=== PATIENT | female | born 1960 | race Caucasian/White ===

== ENCOUNTER → 2016-10-01 | Outpatient (CLI) | payer BC, OTHER ==
--- NOTE | 2016-10-01 08:34 | DI ---
XR FOOT COMPLETE MIN 3VW,10/01/2016 7:43 AM: Clinical History: Right foot pain. Previous Exam: None at this facility. Findings: 3 views of the right foot are obtained, and demonstrate a very small avulsion of the right fifth prox imal metatarsal. There is a hallux valgus deformity noted of the right first metatarsophalangeal joint with overlying soft tissue swelling. Impression: Small avulsion fracture of the proximal right fifth metatarsal. Hallux valgus deformity of the right first metatarsophalangeal joint.
== END ==
LOC: MOB RAD 07:44
DX: M79.671 Pain in right foot (principal); S92.354A Nondisplaced fracture of fifth metatarsal bone, right foot, initial encounter for closed fracture; W22.8XXA Striking against or struck by other objects, initial encounter
CPT/HCPCS: 73630

== ENCOUNTER 2018-08-02 05:10 | Inpatient (IN) ==
[2018-08-02] MEDS ORDERED: ONDANSETRON 4 MG/2 ML VIAL IVP ONE (05:36)
[2018-08-02] MEDS ORDERED: Sodium Chloride 0.9% 1,000 ML PRIMARY IV ONE ×2 (05:36→06:48)
[2018-08-02 06:05] LABS: BASOPHILS # (AUTO) 0.02 10*3/UL; BASOPHILS % (AUTO) 0.1 % (0-1); EOSINOPHILS % (AUTO) 0.6 % (0-8); Hematocrit [HCT] 45.7 % (37.0-47.0); Hemoglobin [HGB] 15.6 g/dL (12.0-16.0); LYMPHOCYTES # (AUTO) 0.88 10*3/uL; MEAN CORPUSCULAR HEMOGLOBIN 29.6 PG (27-31); MEAN CORPUSCULAR HGB CONC 34.1 g/dL (33-37); MEAN CORPUSCULAR VOLUME 86.7 FL (81-99); MEAN PLATELET VOLUME 10.3 FL (7.4-12.2); MONOCYTES # (AUTO) 1.51 10*3/UL (0.3-0.8); MONOCYTES % (AUTO) 8.9 % (5-15); NEUTROPHILS # (AUTO) 14.36 10*3/UL; NEUTROPHILS % (AUTO) 84.8 % (50-80); RED BLOOD COUNT 5.27 10^6/uL (4.20-5.40)
[2018-08-02 06:14] LABS: BLOOD UREA NITROGEN 10 mg/dL (7-22); LIPASE 44 IU/L (23-300); SERUM ALBUMIN 4.2 g/dL (3.5-4.8)
[2018-08-02 06:32] LABS: PLATELET MORPHOLOGY COMMENT NORMAL MORPHOLOGY (NORM); RBC MORPHOLOGY COMMENT NORMAL MORPHOLOGY (NORM); WBC MORPHOLOGY COMMENT NORMAL MORPHOLOGY (NORM)
--- NOTE | 2018-08-02 07:50 | DI ---
EXAM: CT Abdomen and Pelvis With Intravenous Contrast. CLINICAL HISTORY: Abdominal pain. TECHNIQUE: Axial computed tomography images of the abdomen and pelvis with intravenous contrast. COMPARISON: No relevant prior studies available. FINDINGS: Lower thorax: No acute findings. ABDOMEN: Liver: Unremarkable. No mass. Gallbladder and bile ducts: Unremarkable. No calcified stones. No ductal dilation. Pancreas: Unremarkable. No ductal dilation. No mass. Spleen: No splenomegaly. Small splenic calcification. Adrenals: Unremarkable. No mass. Kidneys and ureters: Bilateral parapelvic renal cysts. No hydronephrosis. No solid mass. PELVIS: Bladder: Unremarkable. No mass. Reproductive: Unremarkable as visualized. Appendix: No findings to suggest acute appendicitis. ABDOMEN + PELVIS: Stomach and bowel: Moderate to severe concentric wall thickening of the entire colon with paracolic infiltrative changes, most consistent with an infectious/inflammatory otoole-colitis. A pseudomembranous colitis is not excluded. There may be some involvement of the terminal ileum as well. No small bowel obstruction. Peritoneum: Unremarkable. No significant fluid collection. No free air. Lymph nodes: Unremarkable. No enlarged lymph nodes. Vasculature: Unremarkable. No aortic aneurysm. Bones: No acute fracture. IMPRESSION: Moderate to severe infectious/inflammatory pancolitis. Pseudo-membranous colitis is not excluded. Please correlate for recent antibiotic use.
--- NOTE | 2018-08-02 08:14 | PDOC ---
Nausea/Vomiting/Diarrhea HPI - General Chief Complaint: Nausea / Vomiting / Diarrhea Stated Complaint: nausea, vomiting, diarrhea Date Seen by Provider: 08/02/18 Time Seen by Provider: 05:25 Source: POSITIVE: Patient, Spouse, Old records Exam Limitations: POSITIVE: No limitations Nurse's Notes Reviewed & Considered: Yes - History of Present Illness Initial Comments: The patient is a 57-year-old female who is brought to the emergency room by her . Patient reports that she's had diarrhea for the past week, "about every hour". She's also had some vomiting for the last 2 days, 4-5 episodes per day. She was seen in the clinic yesterday and had a positive test for Clostridium difficile and was started on metronidazole, 500 mg 3 times a day and diphenoxylate for diarrhea. She states that her condition is not improved and she states her vomiting is worse and is not tolerating her oral metronidazole patient states she was treated with Augmentin "the Saturday after "for a sinusitis. Complain of some discomfort to the lower abdomen. She's not had any history of abdominal surgery except for a section. No known fevers or chills. Body Location Affected: REPORTS: Abdomen Timing: REPORTS: Constant, Getting Worse Duration: <1 week (Approximately one week) Severity: Moderate Quality: REPORTS: Cramping, "Pain" (Poorly localized lower abdominal discomfort) Abdominal Pain Onset Location: REPORTS: RLQ, LLQ Abdominal Pain Radiation: REPORTS: No radiation Context: REPORTS: None (Diagnosed with Clostridium difficile in the clinic yesterday, has above) Modifying Factors: improves with: Vomiting, Other (Diarrhea as above) Associated Symptoms: REPORTS: Vomiting, Mucous Diarrhea, Abdominal Pain, Cramping Similar Symptoms Previously: Yes (as above) Recent Care Received: REPORTS: Recently Seen, Treated by MD (As above) Any Prior Injuries Related to Current Complaint?: No - Patient Home Medications Home Medications: Home Medications fluticasone 50 mcg/actuation nasal spray,suspension 50 mcg INASL QDAY #16 g 07/15/18 diphenoxylate-atropine 2.5 mg-0.025 mg tablet 1 tab PO Q6-8H PRN #14 tab 08/01/18 metronidazole 500 mg tablet 500 mg PO TID #30 tab 08/01/18 - Patient Allergies Allergies/Adverse Reactions: Allergies Allergy/AdvReac Type Severity Reaction Status Date / Time No Known Allergies Allergy Verified 08/02/18 05:23 Past Medical History - heen HEENT History: Denies History Cardiovascular History: Denies History Respiratory History: Denies History Gastrointestinal History: Denies History Endocrine History: Denies History Musculoskeletal History: Denies History Prosthesis or Implant: No Neurological History: Denies History Psychiatric History: Denies History History of Sexually Transmitted Diseases: No Female Reproductive History: Denies History Obstetrical History: Delivery Cancer History: Denies History In Past Year Been Physically Harmed or Verbally Threatened: No History of MDRO: Yes Type of MDRO: C-Diff History of Other Communicable Diseases: No Tobacco Use: Never Smoker Type of alcohol normally used: Wine In the Past 12 Months, Have Used or Abuse Any Substance: None Previous Surgical History: Yes Type / Date of Surgery: Anesthesia Reactions: No Significant Family History: No pertinent family hx Past Medical History Reviewed: Reviewed - No Changes ROS - Limitations ROS Limitations: No Limitations Constitution: REPORTS: Denies Symptoms Cardiovascular: REPORTS: Denies Cardiac Symptoms Respiratory: REPORTS: Denies Resp Symptoms Neurological: REPORTS: Denies Neuro Symptoms Gastrointestinal: REPORTS: Abdominal Pain, Nausea, Vomitting, Diarrhea Endocrine: REPORTS: Denies Symptoms Musculoskeletal: REPORTS: Denies MS Symptoms Genitourinary: REPORTS: Denies Symptoms Eyes: REPORTS: Denies Symptoms ENT: REPORTS: Denies Symptoms Skin: REPORTS: Denies Skin Symptoms Lympathic: REPORTS: Denies Lympathic Symptoms Immunologic: POSITIVE: Denies Symptoms Psychiatric: POSITIVE: Denies Psych Symptoms Nausea/Vomiting/Diarrhea Exam - General Appearance General Appearance: POSITIVE: Alert, Cooperative, No Acute Distress, No Evidence of Trauma - HEENT HEENT: POSITIVE: Head Inspection Nml, Eyes Inspection Nml, Ears Inspection Nml, Nose Inspection Nml, Oral/Dental Inspect. Nml, Pharynx Inspect. Nml, PERRL, EOMI - Neck Neck: POSITIVE: Supple, Normal Inspection, Non Tender - Respiratory Respiratory: POSITIVE: No Respiratory Distress, Breath Sounds Normal, Chest Non- Tender - Cardiovascular Cardiovascular: POSITIVE: Regular Rate and Rhythm, Heart Sounds Normal, Equal Pulses, Strong Pulses Peripheral Pulses: Radial (R): 2+, Radial (L): 2+ - Chest Chest: POSITIVE: Non Tender - Abdomen Abdomen: Soft: (All Quadrants), Normal Bowel Sounds: (All Quadrants), Denies Tenderness: (RUQ), (LUQ), No Splenomegaly: (All Quadrants), No Hepatomegaly: (All Quadrants), No Guarding: (All Quadrants), No Rebound: (All Quadrants), No Palpable Pulse: (All Quadrants), No Palpabale Mass: (All Quadrants), No Distention: (All Quadrants), No Rigidity: (All Quadrants), Tenderness Noted: (RLQ), (LLQ) Additional Abdominal Details: Abdominal examination shows bowel sounds are present. Patient does express some discomfort to the abdomen below the umbilicus. No masses, organomegaly or rebound. - Back Back: POSITIVE: Normal Inspection. 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 Lab Results Reviewed by Me: Yes CBC and BMP: 08/02/18 05:53 08/02/18 05:53 Lab Results:: Laboratory Results 08/02/18 08/02/18 05:53 05:53 WBC 16.93 H RBC 5.27 Hgb 15.6 Hct 45.7 MCV 86.7 MCH 29.6 MCHC 34.1 RDW Std Deviation 42.8 RDW Coeff of Jamee 13.6 Plt Count 285 MPV 10.3 Immature Gran % (Auto) 0.4 Neut % (Auto) 84.8 H Lymph % (Auto) 5.2 L [place] % (Auto) 8.9 Eos % (Auto) 0.6 Baso % (Auto) 0.1 Immature Gran # (Auto) 0.06 Neut # (Auto) 14.36 Lymph # (Auto) 0.88 [place] # (Auto) 1.51 H Eos # (Auto) 0.10 Baso # (Auto) 0.02 WBC Morphology Comment Normal morphology Plt Morphology Comment Normal morphology RBC Morph Comment Normal morphology Sodium 139 Potassium 4.1 Chloride 106 Carbon Dioxide 23 Anion Gap 10 BUN 10 Creatinine 0.8 Estimated GFR > 60 BUN/Creatinine Ratio 12.50 Glucose 129 H Calculated Osmolality 288.0 Calcium 9.3 Total Bilirubin 0.8 AST 19 ALT 28 Alkaline Phosphatase 72 C-Reactive Protein 6.6 H Total Protein 7.1 Albumin 4.2 Globulin 2.9 Albumin/Globulin Ratio 1.40 Amylase 50 Lipase 44 - Patient's Progress Pain Medication Addressed: POSITIVE: Not Applicable School/Work Release Addressed: POSITIVE: Not Applicable Re-examine Time: 08:10 Re-Examine Comment: Patient had 2 loose mucousy bowel movements while in the e mergency room. She is hydrated with about 1500 mL of normal saline and patient is feeling better. Patient not tolerating her metronidazole orally. Case discussed with Dr. Galeano, hospitalist, who has admitted the patient for further evaluation and treatment. Status: POSITIVE: Improved, Re-Examined - Consult Counseled: POSITIVE: Patient, Family (), RE: Lab Results, RE: Radiology Results, RE: DX, RE: Need for F/U Patient Care Time - Estimated PCT Patient Care Time (In Minutes): 45 Vital Signs - Recent Vital Signs Vital Signs: Vital Signs (Last 8 hours) Temp Pulse Resp BP Pulse Ox 08/02/18 05:27 97.5 F 93 18 135/90 93 08/02/18 05:10 97.5 F 93 18 135/90 93 - VS Reviewed Vital Signs Reviewed: Yes Discharge Clinical Impression: Diarrhea, Nausea and vomiting, Clostridium difficile colitis Discharge Disposition: Admit to Inpatient Condition: Fair Follow Up With: SHELLI OVALLE FNP [Primary Care Provider] - Date Decision to Admit to Inpatient: 08/02/18 Time Decision to Admit to Inpatient: 08:00
[2018-08-02 08:36] VITALS: BP 135/90; RESP 18; TEMP 97.5; O2SAT 93
[2018-08-02] MEDS ORDERED: LIDOCAINE W/ SODIUM BICARB 0.5 ML SYR SUBD PRN (08:50)
[2018-08-02] MEDS: ACIDOPHILUS/BULGARICUS CHEWABLE TABLET PO SCH ×3 (09:32→20:06)
[2018-08-02] MEDS: Vancomycin Oral Soln 125 MG/5 ML (7500MG/300ML) BOTTLE PO SCH ×3 (09:32→20:07)
[2018-08-02] MEDS: metroNIDAZOLE 500mg (Premix) 500 MG/100 ML BAG IV SCH ×2 (09:33→16:22)
[2018-08-02] MEDS: D5-1/2NS + 20mEq KCL 1,000 ML PRIMARY IV SCH ×2 (09:33→19:21)
--- NOTE | 2018-08-02 11:55 | PDOC ---
HPI - History of Present Illness Date of Service: 08/02/18 Time of Service: 10:00 Chief Complaint: Abdominal pain and nausea and vomiting History of Present Illness: This very pleasant 57-year-old female that has really no past medical history who recently had Augmentin for sinusitis. She comes in accompanied by her early this morning with worsening abdominal pain, diarrhea, and nausea and vomiting. She states that she was on the Augmentin, and about 4 days into her antibiotic she developed diarrhea and she resumed it was related to the antibiotic. She states that it lessened after she was off of her Augmentin, but then increased and she saw the urgent care after trying Imodium for a couple days. She was diagnosed with C. difficile diarrhea, and was placed on Flagyl and continued on Imodium. Her symptoms progressed and she developed severe nausea and vomiting and she came in for evaluation. She is really not been able to hold anything down. She's lost weight. She denies any fevers or chills. A CT scan done in the emergency room showed otoole colitis. She's not had anything like this happen before. Past Medical History Medical History: None Surgical History: 1. . 2. Right finger surgery, fifth digit Pertinent Family History: She has a grandparent that had diabetes. Past Social History: Does not smoke or drink. 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 . Has 2 children that are described as healthy. Tobacco Use: Never Smoker Do you dip or chew tobacco: No In the Past 12 Months, Have Used or Abuse Any of the Following Substance: None Alcohol Use: None Medication / Allergies Home Medications: Home Medications Medication Instructions Recorded Confirmed Type fluticasone 50 mcg/actuation nasal 50 mcg INASL QDAY #16 g 07/15/18 08/02/18 Rx spray,suspension diphenoxylate-atropine 2.5 1 tab PO Q6-8H PRN #14 tab 08/01/18 08/02/18 Rx mg-0.025 mg tablet metronidazole 500 mg tablet 500 mg PO TID #30 tab 08/01/18 08/02/18 Rx Allergies/Adverse Reactions: Allergies Allergy/AdvReac Type Severity Reaction Status Date / Time No Known Allergies Allergy Verified 08/02/18 05:23 Review of Systems - Review of Systems All Systems: Reviewed & No Additional Complaints Except as Stated (I did a 12 po int review systems and it was negative other than that discussed below and in the history of present illness.) Exam - Vitals Vital Signs: Vital Signs Temperature 98.5 F Temperature Source Oral Pulse Rate [Pulse Oximeter] 72 Pulse Rate 84 Respiratory Rate 16 Blood Pressure [Left Arm] 118/63 Blood Pressure 134/91 Pulse Ox 95 Oxygen Delivery Method Room Air Height 5 ft 7 in Weight 142 lb 9.6 oz - General General Appearance: No Acute Distress, Cooperative - Head Head Exam: Normal Inspection, Normocephalic, Atraumatic - Eye Eye Exam: POSITIVE: No Scleral Icterus - ENT ENT Exam: POSITIVE: Mucous Membranes Dry - Neck Neck Exam: Normal Inspection, No Tenderness, No Lymphadenopathy, No Thyromegaly, JVP is not Raised - Respiratory Respiratory Exam: POSITIVE: Clear to Auscultation - Bilaterally, Breathing Non Labored, Normal to Percussion and Palpation - Cardiovascular Cardiovascular Exam: POSITIVE: RRR, No Murmur, No Clicks, No Gallops, No Rubs, No JVD - GI/Abdominal GI/Abdominal Exam: POSITIVE: Normal Bowel Sounds, Non Distended, Soft Additional GI/Abdominal Exam Details: She states tenderness is not as bad currently - Rectal Rectal Exam: POSITIVE: Deferred - External Exam: POSITIVE: Deferred Exam: POSITIVE: Deferred - Extremities Extremities Exam: POSITIVE: No Clubbing Present, No Edema Present, No Cyanosis Present - Back Back Exam: POSITIVE: No CVA Tenderness - Neurological Neurological Exam: POSITIVE: Alert, Oriented x 3, No Facial Droop, Speech Intact / Clear, Moves All Extremities Equally - Psychiatric Psychiatric Exam: POSITIVE: Normal Affect, Normal Mood Results - Labs CBC and BMP: 08/02/18 05:53 08/02/18 05:53 Additional Lab Results: Laboratory Results 08/02/18 08/02/18 08/02/18 05:36 05:53 05:53 WBC 16.93 H RBC 5.27 Hgb 15.6 Hct 45.7 MCV 86.7 MCH 29.6 MCHC 34.1 RDW Std Deviation 42.8 RDW Coeff of Jamee 13.6 Plt Count 285 MPV 10.3 Immature Gran % (Auto) 0.4 Neut % (Auto) 84.8 H Lymph % (Auto) 5.2 L [place] % (Auto) 8.9 Eos % (Auto) 0.6 Baso % (Auto) 0.1 Immature Gran # (Auto) 0.06 Neut # (Auto) 14.36 Lymph # (Auto) 0.88 [place] # (Auto) 1.51 H Eos # (Auto) 0.10 Baso # (Auto) 0.02 WBC Morphology Comment Normal morphology Plt Morphology Comment Normal morphology RBC Morph Comment Normal morphology Sodium 139 Potassium 4.1 Chloride 106 Carbon Dioxide 23 Anion Gap 10 BUN 10 Creatinine 0.8 Estimated GFR > 60 BUN/Creatinine Ratio 12.50 Glucose 129 H Calculated Osmolality 288.0 Lactic Acid 1.3 Calcium 9.3 Total Bilirubin 0.8 AST 19 ALT 28 Alkaline Phosphatase 72 C-Reactive Protein 6.6 H Total Protein 7.1 Albumin 4.2 Globulin 2.9 Albumin/Globulin Ratio 1.40 Amylase 50 Lipase 44 Assessment and Plan - Patient Problems (1) Clostridium difficile colitis Current Visit: Yes Status: Acute Code(s): A04.72 - Enterocolitis due to Clostridium difficile, not specified as recurrent (2) Diarrhea Current Visit: Yes Status: Acute Code(s): R19.7 - Diarrhea, unspecified (3) Nausea and vomiting Current Visit: Yes Status: Acute Code(s): R11.2 - Nausea with vomiting, unspecified - Assessment / Plan Additional Assessment/Plan Details: Admit the patient. Recently, Flagyl has become second line for C. difficile due to treatment failures, so I'll switch her to first line medication and vancomycin. Stop Imodium as there is likely toxin build-up that could be making this significantly worse. If anything, we could consider cholestyramine but given that she significantly worse with Imodium, I think it's best to just use probiotics to try to repopulate to get. I'll let the patient go on a regular diet. However, she's not tolerating much D, as are lost weight, and given her hydration status (dehydrated currently), I don't think she can do this at home. I really think she needs a day or 2 of improvement in her pain and her nausea and vomiting before we can consider discharge. This is evidence with severe inflammatory changes on CT scan through the entire colon as well as an elevated white blood cell count. I think in retrospect, the patient may be padma that she has not developed toxic megacolon but could be at risk for this if she doesn't improve with interventions here in the hospital. I did discuss this with her and her . IV fluids with electrolyte replacement as necessary. Tylenol for pain as necessary. Plan discussed above with patient and and they agreed.
[2018-08-02] MEDS: ONDANSETRON 4 MG/2 ML VIAL IVP PRN ×2 (11:57→19:21)
[2018-08-02] MEDS: Acetaminophen 1000mg Inj 1,000 MG/100 ML VIAL IV PRN ×2 (11:59→20:06)
[2018-08-03] MEDS: metroNIDAZOLE 500mg (Premix) 500 MG/100 ML BAG IV SCH ×3 (00:01→17:08)
[2018-08-03] MEDS: Vancomycin Oral Soln 125 MG/5 ML (7500MG/300ML) BOTTLE PO SCH ×4 (02:11→20:05)
[2018-08-03] MEDS: ONDANSETRON 4 MG/2 ML VIAL IVP PRN ×2 (03:34→09:06)
[2018-08-03 04:33] LABS: BASOPHILS # (AUTO) 0.02 10*3/UL; BASOPHILS % (AUTO) 0.2 % (0-1); EOSINOPHILS # (AUTO) 0.33 10*3/UL; EOSINOPHILS % (AUTO) 3.2 % (0-8); Hematocrit [HCT] 37.9 % (37.0-47.0); Hemoglobin [HGB] 12.2 g/dL (12.0-16.0); LYMPHOCYTES # (AUTO) 1.23 10*3/uL; MEAN CORPUSCULAR HEMOGLOBIN 28.4 PG (27-31); MEAN CORPUSCULAR HGB CONC 32.2 g/dL (33-37); MEAN CORPUSCULAR VOLUME 88.3 FL (81-99); MEAN PLATELET VOLUME 10.2 FL (7.4-12.2); MONOCYTES % (AUTO) 8.8 % (5-15); NEUTROPHILS # (AUTO) 7.71 10*3/UL; NEUTROPHILS % (AUTO) 75.5 % (50-80); RED BLOOD COUNT 4.29 10^6/uL (4.20-5.40)
[2018-08-03 04:39] LABS: BLOOD UREA NITROGEN 4 mg/dL (7-22); BUN/CREATININE RATIO 5.71 (6-20)
[2018-08-03 04:46] LABS: PLATELET MORPHOLOGY COMMENT NORMAL MORPHOLOGY (NORM); RBC MORPHOLOGY COMMENT NORMAL MORPHOLOGY (NORM); WBC MORPHOLOGY COMMENT NORMAL MORPHOLOGY (NORM)
[2018-08-03] MEDS: D5-1/2NS + 20mEq KCL 1,000 ML PRIMARY IV SCH ×2 (05:12→14:46)
[2018-08-03] MEDS: ACIDOPHILUS/BULGARICUS CHEWABLE TABLET PO SCH ×3 (08:10→20:05)
[2018-08-03] MEDS: Acetaminophen 1000mg Inj 1,000 MG/100 ML VIAL IV PRN (08:11)
[2018-08-03] MEDS: FLUTICASONE PROPIONATE 16 GRAM (120 SPRAYS / BOTTLE) ENOS SCH (10:43)
[2018-08-03] MEDS ORDERED: KETOROLAC 15 MG/1 ML VIAL IVP PRN (12:02)
[2018-08-03] MEDS ORDERED: HYDROmorphone 2 MG/1 ML IVP PRN (12:02)
[2018-08-03] MEDS ORDERED: Prochlorperazine Edisylate Inj 10mg/2ml vial IVP PRN (12:02)
--- NOTE | 2018-08-03 12:46 | PDOC(PROG) ---
Date of Service: 08/03/18 Time of Service: 12:41 Interval History: no chest pain, no shortness of breath. nausea has improved, but still present and causing problems with PO intake--limited to fluids. having explosive diarrhea--6 BM already today. Objective : Data - Labs CBC and BMP: 08/03/18 04:10 08/03/18 04:10 Additional Lab Results: 08/03/18 08/03/18 04:10 04:10 Lactic Acid 0.6 L Calcium 8.2 L Objective : Exam - General General Appearance: No Acute Distress, Cooperative Additional General Exam Details: Vital Signs - Last Taken Temperature 98.7 F 08/03/18 10:58 Pulse Rate 72 08/03/18 10:58 Respiratory Rate 18 08/03/18 10:58 Blood Pressure 100/61 08/03/18 10:58 Pulse Ox 94 08/03/18 10:58 - Eye Eye Exam: No Scleral Icterus - ENT ENT Exam: Mucous Membranes Moist - Neck Neck Exam: JVP is not Raised - Respiratory Respiratory Exam: Clear to Auscultation - Bilaterally, Breathing Non Labored - Cardiovascular Cardiovascular Exam: RRR, No Murmur, No Clicks, No Gallops, No Rubs, No JVD - GI/Abdominal GI/Abdominal Exam: Normal Bowel Sounds, Non Tender, Non Distended, Soft Additional GI/Abdominal Exam Details: abdomen is less tender with palpation - Extremities Extremities Exam: No Clubbing Present, No Edema Present, No Cyanosis Present - Neurological Neurological Exam: Alert, Oriented x 3, No Facial Droop, Speech Intact / Clear, Moves All Extremities Equally Assessment and Plan - Patient Problems (1) Clostridium difficile colitis Current Visit: Yes Status: Acute Code(s): A04.72 - Enterocolitis due to Clostridium difficile, not specified as recurrent (2) Diarrhea Current Visit: Yes Status: Acute Code(s): R19.7 - Diarrhea, unspecified (3) Nausea and vomiting Current Visit: Yes Status: Acute Code(s): R11.2 - Nausea with vomiting, unspecified - Assessment / Plan Additional Assessment/Plan Details: patient's abdomen has moments of extreme tenderness, so write for dilaudid and toradol PRN nausea better, but intermittently gets worse--antiemetics helping patient keep liquids down, add compazine continue vanco PO and flagyl hold off on any anti-diarrheals (toxic megacolon)--maybe tomorrow consider cholestyramine for toxin binding effects to slow diarrhea down? patient clearly will not be able to sustain hydration status with poor PO intake and increased bowel movements.
[2018-08-04] MEDS: D5-1/2NS + 20mEq KCL 1,000 ML PRIMARY IV SCH (00:10)
[2018-08-04] MEDS ORDERED: Sodium Chloride 0.9% 1,000 ML PRIMARY IV ONE (00:32)
[2018-08-04] MEDS: metroNIDAZOLE 500mg (Premix) 500 MG/100 ML BAG IV SCH ×2 (01:54→10:21)
[2018-08-04] MEDS: Vancomycin Oral Soln 125 MG/5 ML (7500MG/300ML) BOTTLE PO SCH ×2 (01:59→08:46)
[2018-08-04] MEDS: Acetaminophen 1000mg Inj 1,000 MG/100 ML VIAL IV PRN (03:04)
[2018-08-04] MEDS: ACIDOPHILUS/BULGARICUS CHEWABLE TABLET PO SCH (08:46)
[2018-08-04] MEDS: FLUTICASONE PROPIONATE 16 GRAM (120 SPRAYS / BOTTLE) ENOS SCH (09:40)
--- NOTE | 2018-08-04 10:20 | DCSUMMARY ---
Hospitalization Summary Admit Date: 08/02/2018 Discharge Date: 08/04/18 Primary Diagnosis:: C. difficile pancolitis Hospital Course: This very pleasant 57-year-old female who came in symptoms of nausea, vomiting, and abdominal pain. She had known C. difficile colitis, but had an elevated white blood cell count, abdominal tenderness, the CT scan that showed pancolitis. She had been on Flagyl, and also Imodium. She was admitted, antidiarrheals were stopped, and her antibiotic was switched to vancomycin. We gave her IV fluids and that really helped her as well. Through the course of the hospital stay, her stool frequency was significantly less, and she may have even had the start of formed stool or loose stool today. Her abdominal pain is resolved. She is able to eat now without antinausea medicines. She would like to go home. No chest pain, shortness breath, nausea or vomiting. Assessment and Plan: 1. As per discharge assessments noted 2. Disposition: Patient is discharged home. 3. Condition on discharge, stable and improved. 4. Diet: regular diet 5. Activities: resume normal activities 6. Follow-Up: 1. Lizzette Chu in a couple weeks 2. 7. Medications at the Time of Discharge: Home Medications Medication Instructions Recorded Confirmed Type fluticasone 50 mcg/actuation nasal 50 mcg INASL QDAY #16 g 07/15/18 08/02/18 Rx spray,suspension metronidazole 500 mg tablet 500 mg PO TID #30 tab 08/01/18 08/02/18 Rx Acidophilus/Bulgaricus [Lactinex] 4 tab PO TID #360 tab.chew 08/04/18 Rx Vancomycin Oral Soln 125 mg PO Q6H #300 ml 08/04/18 Rx 8. Time, care, counseling and coordination of care for this discharge is less than 30 minutes. Exam - Vitals Vital Signs: Vital Signs Temperature 98 F Temperature Source Temporal Artery Scan Pulse Rate [Pulse Oximeter] 68 Pulse Rate 84 Respiratory Rate 17 Blood Pressure [Left Arm] 109/63 Blood Pressure 134/91 Pulse Ox 94 Oxygen Delivery Method Room Air Height 5 ft 7 in Weight 146 lb 6.4 oz - General General Appearance: No Acute Distress, Cooperative - Eye Eye Exam: POSITIVE: No Scleral Icterus - ENT ENT Exam: POSITIVE: Mucous Membranes Moist - Respiratory Respiratory Exam: POSITIVE: Clear to Auscultation - Bilaterally, Breathing Non Labored - Cardiovascular Cardiovascular Exam: POSITIVE: RRR, No Murmur, No Clicks, No Gallops, No Rubs, No JVD - GI/Abdominal GI/Abdominal Exam: POSITIVE: Normal Bowel Sounds, Non Tender, Non Distended, Soft - Extremities Extremities Exam: POSITIVE: No Clubbing Present, No Edema Present, No Cyanosis Present - Neurological Neurological Exam: POSITIVE: Alert, Oriented x 3, No Facial Droop, Speech Intact / Clear, Moves All Extremities Equally Data Peritnent Studies: 08/02/18 08/03/18 08/03/18 05:53 04:10 04:10 WBC 10.22 Hgb 12.2 Hct 37.9 Plt Count 206 Sodium 138 Potassium 3.9 Chloride 109 Carbon Dioxide 25 Anion Gap 4 L BUN 4 L Creatinine 0.7 Estimated GFR > 60 BUN/Creatinine Ratio 5.71 L Glucose 113 H Calculated Osmolality 283.0 Lactic Acid Calcium 8.2 L Total Bilirubin 0.8 AST 19 ALT 28 Alkaline Phosphatase 72 C-Reactive Protein 6.6 H Total Protein 7.1 Albumin 4.2 Globulin 2.9 Albumin/Globulin Ratio 1.40 Amylase 50 Lipase 44 08/03/18 04:10 WBC Hgb Hct Plt Count Sodium Potassium Chloride Carbon Dioxide Anion Gap BUN Creatinine Estimated GFR BUN/Creatinine Ratio Glucose Calculated Osmolality Lactic Acid 0.6 L Calcium Total Bilirubin AST ALT Alkaline Phosphatase C-Reactive Protein Total Protein Albumin Globulin Albumin/Globulin Ratio Amylase Lipase Patient Problems - Patient Problem List (1) Clostridium difficile colitis Current Visit: Yes Status: Acute Code(s): A04.72 - Enterocolitis due to Clostridium difficile, not specified as recurrent Category: Medical (2) Diarrhea Current Visit: Yes Status: Acute Code(s): R19.7 - Diarrhea, unspecified Category: Medical (3) Nausea and vomiting Current Visit: Yes Status: Resolved Code(s): R11.2 - Nausea with vomiting, unspecified Category: Medical
== END 2018-08-04 11:41 | disposition home or self-care (01) | DRG 373 ==
LOC: ER 05:10 → MED/SURG 08:35
PROVIDERS: ADMIT Family Medicine; ATTEND Family Medicine